=== PATIENT | male | born 1965 | race Caucasian/White ===

== ENCOUNTER 2019-08-28 22:51 | Emergency (ER) | payer OTHER ==
[~2019-08-28] VITALS: Ht 177.8 cm; Wt 104.6 kg
--- NOTE | 2019-08-28 23:31 | PHYS DOC ---
Past History Past Medical History: Arthritis, Sciatica Adult General Chief Complaint Chief Complaint: ".. I got back pain..."..." It is a chronic thing... ".. " 5 yrs ago they said I would need surgery.... but I been putting it off as long as possible.. 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 but last few days.. I am having bad sciatica ... 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 Patient having increased burning sciatic pain particularly in right leg.. Pain is exacerbated by sitting or straight leg lift. Patient denies any specific recent injury. 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 Patient does have a 40 pound weight limit at current job. Patient denies any history of fever, chills, or immunosuppression recent travel. Patient denies any problems with defecation or urination. Patient normally follows at the [facility]. Review of Systems Review of Systems Constitutional: Denies fever or chills [] Eyes: Denies change in visual acuity, redness, or eye pain [] HENT: Denies nasal congestion or sore throat [] Respiratory: Denies cough or shortness of breath [] Cardiovascular: No additional information not addressed in HPI [] GI: Denies abdominal pain, nausea, vomiting, bloody stools or diarrhea [] : Denies dysuria or hematuria [] Musculoskeletal: Patient complains of exacerbation of his chronic back pain Integument: Denies rash or skin lesions [] Neurologic: Denies headache, focal weakness or sensory changes. Patient []complaints of right sciatic nerve pain Endocrine: Denies polyuria or polydipsia [] All other systems were reviewed and found to be within normal limits, except as documented in this note. Family History Family History Noncontributory presentation Current Medications Current Medications See nursing for home medications Allergies Allergies No known drug allergies Physical Exam Physical Exam Constitutional: on acute distress, non-toxic appearance. [] HENT: Normocephalic, atraumatic, bilateral external ears normal, oropharynx moist, no oral exudates, nose normal. [] Eyes: PERRLA, EOMI, conjunctiva normal, no discharge. [] Glasses Neck: Normal range of motion, no tenderness, supple, no stridor. [] Cardiovascular:Heart rate regular rhythm, no murmur []PMI to the left Lungs & Thorax: Bilateral breath sounds equal at apex auscultation [] Abdomen: Bowel sounds normal, soft, no tenderness, no masses, no pulsatile masses. Obese. No saddle loss. Circumcised male. Skin: Warm, dry, no erythema, no rash. [] Back: Lumbar sacral tenderness, no CVA tenderness. [] Extremities: Complaints of right leg sciatica tenderness, no cyanosis, no clubbing, ROM intact, no edema. [] Neurologic: Alert and oriented X 3, moves extremities on request. Does have dist al sensory no focal deficits noted. []DTRs +2 patella. Psychologic: Affect normal, judgement normal, mood normal. [] EKG EKG [] Radiology/Procedures Radiology/Procedures [] IMAGING REPORT Signed PATIENT: EVE LYON GACCOUNT: [id number] : 1965 LOCATION: ER AGE: 54 SEX: M EXAM STATUS: REG ER ORD. PHYSICIAN: CAL MCELROY MD REASON: severe sciatica .> Rt., LIFTING INJURY, X 10 DAYS PROCEDURE: CT LUMBAR SPINE WO CONTRAST CT lumbar spine without contrast History: Right-sided static from lifting injury 10 days ago Axial helical images of the lumbar spine were obtained without contrast. Axial, coronal and sagittal reconstruction was performed. Findings: There is mild retrolisthesis of L5 on S1. There is minimal loss of stature of the T12 vertebral body which appears to be due to degenerative disc disease. There is mild diffuse circumferential disc bulge and hypertrophy of facets and ligamentum flavum and an element of congenital shortening of pedicles resulting in moderate central stenosis at L3-L4 and L4-L5. There is moderate narrowing of the neuroforamen bilaterally below the level of the exiting nerve roots at L4-5 and L5-S1. There is loss of fat around the exiting nerve roots on the left at L4-5 and bilaterally at L5-S1. Evaluation of the central canal is limited without contrast. Impression: 1. Moderate central stenosis at L3-L4 and L4-5. 2. Neuroforaminal stenosis with compression of the internal course the exiting nerve roots on the left at L4-5 and bilaterally at L5-S1. End impression PQRS Compliance Statement: One or more of the following individualized dose reduction techniques were utilized for this examination: 1. Automated exposure control 2. Adjustment of the mA and/or kV according to patient size 3. Use of iterative reconstruction technique Electronically signed by: Jesus Roman III, MD (08/29/2019 2:51 AM) [id number] DICTATED AND SIGNED BY: JESUS ROMAN III, MD DATE: 08/29/19 025 CC: CAL MCELROY MD; PCP,NO ~ Course & Med Decision Making Course & Med Decision Making Pertinent Labs and Imaging studies reviewed. (See chart for details) Patient take Tylenol and ibuprofen as needed for pain. Ice packs. Follow-up primary care. For marked pain may take Vicoprofen up to 4 times a day. Patient take Flexeril 10 mg 3 times a day for muscle spasms. Patient was issued a disc of his CT of lower back. Patient follow-up with primary care and neurosurgery. Return if any concerns. Impression- 1. 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 Exacerbation of chronic back pain 3. Sciatica [] Dragon Disclaimer Dragon Disclaimer This electronic medical record was generated, in whole or in part, using a voice recognition dictation system. Departure Departure: Disposition: 01 HOME/RESIDENCE PRIOR TO ADM Condition: STABLE Referrals: PCP,NO (PCP) Scripts Cyclobenzaprine Hcl (CYCLOBENZAPRINE HCL) 10 Mg Tablet 10 MG PO TID PRN for spasms, #30 TAB Prov: CAL MCELROY MD 08/29/19 Hydrocodone/Ibuprofen (HYDROCODONE-IBUPROFEN 7.5-200 ) 1 Each Tablet 1 TAB PO PRN Q6HRS PRN for PAIN, #30 TAB 0 Refills Prov: CAL MCELROY MD 08/29/19 Dragon Disclaimer This chart was dictated in whole or in part using Voice Recognition software in a busy, high-work load, and often noisy Emergency Department environment. It may contain unintended and wholly unrecognized errors or omissions. Dragon Disclaimer This chart was dictated in whole or in part using Voice Recognition software in a busy, high-work load, and often noisy Emergency Department environment. It may contain unintended and wholly unrecognized errors or omissions. CAL MCELROY MD Aug 28, 2019 23:31
[2019-08-29 01:14] VITALS: BP 131/80
[2019-08-29 01:32] LABS: BILIRUBIN,URINE NEG (NEG); CLARITY,URINE CLEAR; COLOR,URINE YELLOW; GLUCOSE,URINE NEG (NEG); NITRITE,URINE NEG (NEG); UROBILINOGEN,URINE 0.2 mg/dL (0.2 mg/dL)
[2019-08-29 01:33] LABS: BACTERIA,URINE 0 /HPF (0-FEW); RBC,URINE 0 /HPF (0-2); SQUAMOUS EPITHELIAL CELL,UR OCC /LPF; WBC,URINE OCC /HPF (0-4)
[2019-08-29 01:37] LABS: BARBITURATES NEG (NEG); BENZODIAZEPINES POS (NEG); CANNABINOIDS POS (NEG); COCAINE NEG (NEG); METHADONE NEG (NEG); OPIATES NEG (NEG); PHENCYCLIDINE NEG (NEG)
[2019-08-29 01:41] LABS: AMPHETAMINE/METHAMPHETAMINE NEG (NEG)
[2019-08-29] MEDS ORDERED: HYDR-1179 PO (01:57)
[2019-08-29] MEDS ORDERED: CYCL-331 PO (01:57)
[2019-08-29] MEDS ORDERED: KETOROLAC 60 MG/2 ML VIAL. IM ONE (02:15)
[2019-08-29] MEDS ORDERED: methylPREDNISolone ACETATE 40 MG/ML VIAL. IM ONE (02:15)
--- NOTE | 2019-08-29 02:55 | RAD ---
CT lumbar spine without contrast History: Right-sided static from lifting injury 10 days ago Axial helical images of the lumbar spine were obtained without contrast. Axial, coronal and sagittal reconstruction was performed. Findings: There is mild retrolisthesis of L5 on S1. There is minimal loss of stature of the T12 vertebral body which appears to be due to degenerative disc disease. There is mild diffuse circumferential disc bulge and hypertrophy of facets and ligamentum flavum and an element of congenital shortening of pedicles resulting in moderate central stenosis at L3-L4 and L4-L5. There is moderate narrowing of the neuroforamen bilaterally below the level of the exiting nerve roots at L4-5 and L5-S1. There is loss of fat around the exiting nerve roots on the left at L4-5 and bilaterally at L5-S1. Evaluation of the central canal is limited without contrast. Impression: 1. Moderate central stenosis at L3-L4 and L4-5. 2. Neuroforaminal stenosis with compression of the internal course the exiting nerve roots on the left at L4-5 and bilaterally at L5-S1. End impression PQRS Compliance Statement: One or more of the following individualized dose reduction techniques were utilized for this examination: 1. Automated exposure control 2. Adjustment of the mA and/or kV according to patient size 3. Use of iterative reconstruction technique Electronically signed by: Yunier Fernández III, MD (08/29/2019 2:51 AM) [id number]
== END 2019-08-29 04:45 | disposition home or self-care (01) ==
LOC: ER 22:51
DX: G89.29 Other chronic pain (principal); M54.40 Lumbago with sciatica, unspecified side; M47.897 Other spondylosis, lumbosacral region
CPT/HCPCS: 36415; 72131; 80307; 81001; 96372; 99285; J1030; J1885